=== PATIENT | male | born 1955 | race Caucasian/White ===

== ENCOUNTER 2021-04-13 10:48 | Emergency (ER) | payer OTHER ==
[~2021-04-13] VITALS: Ht 177.8 cm; Wt 76.7 kg
[2021-04-13] MEDS ORDERED: ORPHENADRINE C100 MG PO (15:22)
[2021-04-13] MEDS ORDERED: DICLOFENAC POTA50 MG PO (15:22)
== END 2021-04-13 15:34 | disposition home or self-care (01) ==
LOC: ER 10:48
DX: S33.5XXA Sprain of ligaments of lumbar spine, initial encounter (principal); V19.88XA Pedal cyclist (driver) (passenger) injured in other specified transport accidents, initial encounter; Y93.55 Activity, bike riding; Y92.488 Other paved roadways as the place of occurrence of the external cause; Y99.8 Other external cause status